=== PATIENT | male | born 1935 | race Two or more races ===

== ENCOUNTER → 2025-02-17 | Emergency (ER) | payer OTHER ==
[~2025-02-17] VITALS: Ht 172.7 cm; Wt 59.0 kg
[~2025-02-17] MED LIST: ACETAMINOPHEN 500 MG GEL..CAP PO ONE; CEFTRIAXONE SODIUM 2,000 MG VIAL IV STA; CEFTRIAXONE SODIUM 2,000 MG VIAL ONE; ELIQUIS5 MG PO; LEVALBUTEROL HCL 1.25 MG/3 ML SOLUTION IH ONE; LEVALBUTEROL HCL 1.25 MG/3 ML SOLUTION IH SCH; LIPITOR40 M1 PO; METHYLPREDNISOLONE SOD SUCC 125 MG VIAL IV STA; METHYLPREDNISOLONE SOD SUCC 125 MG VIAL ONE; ZESTRIL10 M1 PO
[2025-02-17 19:10] LABS: BASO % 0.2 % (0.1-1.2); EOS # 0.02 (0.04-0.54); EOS % 0.1 % (0.7-7.0); LYMPH # 1.30 (1.18-3.74); LYMPH % 9.6 % (19.3-53.1); MEAN PLATELET VOLUME 10.90 fl (9.4-12.4); MONO # 0.81 (0.24-0.82); MONO % 6.0 % (4.7-12.5); NEUT # 11.29 (1.56-6.13); NEUT % 83.6 % (34.0-71.1); RED CELL DISTRIBUTION WIDTH 14.3 % (11.6-14.4)
[2025-02-17 20:10] LABS: ALT/SGPT 29.0 U/L (12-78); AST/SGOT 25.0 U/L (15-37); BILIRUBIN TOTAL 1.13 mg/dL (0.3-1.2); BUN CREA RATIO 10.0 (7.0-25.0); CREATININE SERUM 1.05 mg/dL (0.70-1.30); GFR 66.66; GLOBULINA 3.5 G/DL (2.4-3.5); GLUCOSE FASTING 122.0 mg/dL (65-100); OSMOLALITY SERUM 280.0 MOSM/KG (275-295)
[2025-02-17 20:12] LABS: COVID-19 AG NEGATIVE (NEGATIVE)
== END | disposition home or self-care (01) ==
LOC: ER 17:50
PROVIDERS: General Practice
DX: J06.9 Acute upper respiratory infection, unspecified (principal); Z20.822 Contact with and (suspected) exposure to COVID-19
CPT/HCPCS: 36415; 70450; 71046; 94640; 96365; 99284; J0696; J3490

== ENCOUNTER 2025-03-25 12:53 | Emergency (ER) | payer OTHER ==
[~2025-03-25] VITALS: Ht 175.3 cm; Wt 72.6 kg
[~2025-03-25 12:53] MED LIST changes: -ACETAMINOPHEN 500 MG GEL..CAP PO ONE; -CEFTRIAXONE SODIUM 2,000 MG VIAL IV STA; -CEFTRIAXONE SODIUM 2,000 MG VIAL ONE; -LEVALBUTEROL HCL 1.25 MG/3 ML SOLUTION IH ONE; -LEVALBUTEROL HCL 1.25 MG/3 ML SOLUTION IH SCH; -METHYLPREDNISOLONE SOD SUCC 125 MG VIAL IV STA; -METHYLPREDNISOLONE SOD SUCC 125 MG VIAL ONE
[2025-03-25] MEDS ORDERED: METHYLPREDNISOLONE SOD SUCC 125 MG VIAL IV STA (14:39)
[2025-03-25] MEDS ORDERED: DIPHENHYDRAMINE HCL 12.5 MG/5 ML BLIST.PACK PO STA (14:40)
[2025-03-25] MEDS ORDERED: FAMOTIDINE/PF 20 MG/2 ML VIAL IV PUSH STA (14:40)
[2025-03-25] MEDS ORDERED: 0.9 % SODIUM CHLORIDE 100 ML IV ONE (14:45)
[2025-03-25] MEDS ORDERED: MEDROLPACK PO (18:20)
[2025-03-25] MEDS ORDERED: NIZORAL SHAMPO120 ML TOP (18:20)
[2025-03-25] MEDS ORDERED: PEPCID AC20 MG PO (18:20)
[2025-03-25] MEDS ORDERED: ZYRTEC10 M3 PO (18:20)
== END 2025-03-25 21:31 | disposition home or self-care (01) ==
LOC: ER 12:54
DX: T78.40XA Allergy, unspecified, initial encounter (principal); L21.9 Seborrheic dermatitis, unspecified; I10 Essential (primary) hypertension